=== PATIENT | female | born 1970 | race Caucasian/White ===

== ENCOUNTER 2018-01-22 09:52 | Outpatient (REF) | payer BC, SELFPAY ==
[2018-01-22 21:07] LABS: Anion Gap 9.9 mmol/L (3-11); BUN 12 mg/dL (7-18); CO2 28.1 mmol/L (21.0-32.0); CREATININE 0.88 mg/dL (0.55-1.02); Calcium 9.2 mg/dL (8.5-10.1); Chloride 104 mmol/L (98-107); Glucose 87 mg/dL (70-100); Potassium 3.9 mmol/L (3.5-5.1); Sodium 142 mmol/L (136-145)
== END 2018-01-22 09:53 ==
LOC: NCHCN 09:52
PROVIDERS: PCP Nurse Practitioner Family; Visit Provider Nurse Practitioner Family
DX: I10 Essential (primary) hypertension (principal)
CPT/HCPCS: 80048

== ENCOUNTER 2018-02-03 09:21 | Outpatient (REF) | payer BC, SELFPAY ==
[2018-02-03 23:15] LABS: Anion Gap 12.4 mmol/L (3-11); BUN 20 mg/dL (7-18); CO2 25.6 mmol/L (21.0-32.0); CREATININE 0.89 mg/dL (0.55-1.02); Calcium 8.8 mg/dL (8.5-10.1); Chloride 105 mmol/L (98-107); Glucose 100 mg/dL (70-100); Potassium 3.9 mmol/L (3.5-5.1); Sodium 143 mmol/L (136-145)
== END 2018-02-03 09:41 ==
LOC: NCHCN 09:21
PROVIDERS: PCP Nurse Practitioner Family; Visit Provider Nurse Practitioner Family
DX: I10 Essential (primary) hypertension (principal)
CPT/HCPCS: 80048

== ENCOUNTER 2018-02-19 08:43 | Outpatient (REF) | payer BC, SELFPAY ==
[2018-02-19 20:30] LABS: Anion Gap 10.7 mmol/L (3-11); BUN 15 mg/dL (7-18); CO2 28.3 mmol/L (21.0-32.0); CREATININE 0.85 mg/dL (0.55-1.02); Chloride 103 mmol/L (98-107); Glucose 95 mg/dL (70-100); Potassium 3.9 mmol/L (3.5-5.1); Sodium 142 mmol/L (136-145)
== END 2018-02-19 09:03 ==
LOC: NCHCN 08:43
PROVIDERS: PCP Nurse Practitioner Family; Visit Provider Nurse Practitioner Family
DX: I10 Essential (primary) hypertension (principal)
CPT/HCPCS: 80048

== ENCOUNTER 2018-05-29 20:28 | Outpatient (REF) | payer BC, SELFPAY ==
[2018-05-29 20:48] LABS: Abs Immature Grans 0.04 k/cumm (0.0-0.09); Absolute Basophil Count 0.02 k/cumm (0.0-0.2); Absolute Eosinophil Count 0.06 k/cumm (0.0-0.7); Absolute Lymphocyte Count 1.73 k/cumm (1.2-3.4); Absolute Monocyte Count 0.76 k/cumm (0.11-0.7); Absolute Neutrophil Count 5.14 k/cumm (1.2-6.7); Basophils % 0.3; Eosinophils % 0.8; HCT 39.3 % (36.0-46.0); HGB 12.9 g/dL (12.0-15.5); Immature Grans % 0.5; Lymphocytes % 22.3; Mean Corp. HGB Concentration 32.8 g/dL (32.0-36.0); Mean Corpuscular Hemoglobin 29.9 pg (27.0-33.0); Mean Corpuscular Volume 91.2 fL (80-95); Mean Platelet Volume 8.9 fL (8.0-11.0); Monocytes % 9.8; Neutrophils % 66.3; Platelet Count 293 x1000/uL (130-400); RBC 4.31 m/cumm (4.00-5.20); RBC Distribution Width 13.7 % (11.7-14.6); White Blood Cell Count 7.75 k/cumm (4.4-10.8)
[2018-05-29 20:50] LABS: Bilirubin Negative (Negative); Blood Negative (Negative); Clarity Sl Cloudy; Glucose Negative (Negative); Ketones 15 mg/dL (Negative); Leukocyte Esterase Negative (Negative); Nitrite Negative (Negative)
[2018-05-29 22:05] LABS: Epithelial Cells Rare HPF (Negative); RBC Negative (0-2); WBC Negative HPF (0-5)
[2018-05-29 22:06] LABS: Bacteria Few HPF (Negative); C & S Indicated? C&S Done As Ordered; Casts Negative LPF (Negative); Crystals Negative HPF (Negative); Mucus Moderate (Negative); Other Cells Negative (Negative)
== END 2018-05-29 20:48 ==
LOC: LBN 20:28
PROVIDERS: PCP Nurse Practitioner Family; Visit Provider Internal Medicine Hematology & Oncology
DX: C50.919 Malignant neoplasm of unspecified site of unspecified female breast (principal); Z86.2 Personal history of diseases of the blood and blood-forming organs and certain disorders involving the immune mechanism
CPT/HCPCS: 81003; 81015; 85025; 87086

== ENCOUNTER 2019-10-22 10:03 | Outpatient (REF) | payer BC, SELFPAY ==
[2019-10-22 20:59] LABS: Magnesium 1.8 mg/dL (1.8-2.4); Potassium 3.9 mmol/L (3.5-5.1)
== END 2019-10-22 10:23 ==
LOC: NCHCN 10:03
PROVIDERS: PCP Nurse Practitioner Family; Visit Provider Internal Medicine
DX: I10 Essential (primary) hypertension (principal); Z01.818 Encounter for other preprocedural examination
CPT/HCPCS: 83735; 84132

== ENCOUNTER 2021-03-28 11:49 | Outpatient (REF) | payer BC, SELFPAY ==
[2021-03-28 21:36] LABS: Abs Immature Grans 0.25 10^3/uL (0.0-0.06); Absolute Basophil Count 0.03 10^3/uL (0.0-0.2); Absolute Eosinophil Count 0.01 10^3/uL (0.0-0.7); Absolute Lymphocyte Count 0.87 10^3/uL (1.2-3.4); Absolute Monocyte Count 1.24 10^3/uL (0.1-0.8); Absolute Neutrophil Count 5.81 10^3/uL (1.2-6.7); Basophils % 0.4; Eosinophils % 0.1; HCT 34.3 % (36.0-46.0); HGB 11.1 g/dL (11.2-15.7); Lymphocytes % 10.6; MCH 33.5 pg (27.0-33.0); MCHC 32.4 % (32.0-36.0); MCV 103.6 fL (80-95); Monocytes % 15.1; Neutrophils % 70.8; Nucleated RBC 3 %; RBC 3.31 10^6/uL (3.93-5.22); RDW 26.9 % (11.7-14.6); RDW-SD 100.6 fL; WBC 8.21 10^3/uL (4.4-10.8)
[2021-03-28 21:47] LABS: Anisocytosis 1+; Platelet Count 70 10^3/uL (130-400)
[2021-03-28 21:56] LABS: ALT 77 U/L (14-59); AST 240 U/L (15-37); Albumin 1.9 g/dL (3.4-5.0); Alkaline Phosphatase 221 U/L (46-116); Anion Gap 8.3 mmol/L (3-11); BUN 21 mg/dL (7-18); Bilirubin, Total 6.5 mg/dL (0.2-1.0); CO2 27.7 mmol/L (21.0-32.0); CREATININE 0.9 mg/dL (0.55-1.02); Chloride 101 mmol/L (98-107); Glucose 53 mg/dL (74-106); Potassium 3.8 mmol/L (3.5-5.1); Sodium 137 mmol/L (136-145); Total Protein 6.5 g/dL (6.4-8.2)
== END 2021-03-28 11:50 | disposition home or self-care (01) ==
LOC: NCHCN 11:49
PROVIDERS: PCP Nurse Practitioner Family; Visit Provider Nurse Practitioner Family
DX: C50.919 Malignant neoplasm of unspecified site of unspecified female breast (principal); U07.1 COVID-19
CPT/HCPCS: 80053; 85025